=== PATIENT | male | born 1995 ===

== ENCOUNTER 2019-07-08 07:58 | Emergency (ER) | payer SELFPAY ==
[2019-07-08 08:02] VITALS: BP 121/88; PULSE 92; RESP 16; TEMP 36.7; O2SAT 100
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
[2019-07-08 08:52] LABS: Abs Immature Grans 0.02 k/cumm (0.0-0.09); Absolute Basophil Count 0.02 k/cumm (0.0-0.2); Absolute Eosinophil Count 0.06 k/cumm (0.0-0.7); Absolute Lymphocyte Count 1.82 k/cumm (1.2-3.4); Absolute Monocyte Count 0.75 k/cumm (0.11-0.7); Absolute Neutrophil Count 6.59 k/cumm (1.2-6.7); Basophils % 0.2; Eosinophils % 0.6; HCT 46.3 % (40.0-50.0); HGB 16.6 g/dL (13.5-17.5); Immature Grans % 0.2; Lymphocytes % 19.7; Mean Corp. HGB Concentration 35.9 g/dL (32.0-36.0); Mean Corpuscular Hemoglobin 32.2 pg (27.0-33.0); Mean Corpuscular Volume 89.9 fL (80-95); Mean Platelet Volume 8.7 fL (8.0-11.0); Monocytes % 8.1; Neutrophils % 71.2; Platelet Count 293 x1000/uL (130-400); RBC 5.15 m/cumm (4.50-6.00); White Blood Cell Count 9.26 k/cumm (4.4-10.8)
[2019-07-08 09:10] LABS: Salicylate < 2.8 mg/dL (2.8-20.0)
--- NOTE | 2019-07-08 09:10 | NUR.NOTE ---
Nursing Note:Pt's grandmother called at 0910 to inquire about pt. Grandmother states she would come case picker pt if needed. She is aware (with pt's permission) that the pt is being evaluated and is not yet ready for pickup. Grandmother (Za Nathan) left cell phone and house number as follows: Home: Provider made aware.
[2019-07-08 09:13] LABS: Acetaminophen < 2 ug/mL (10-30)
[2019-07-08 09:15] LABS: ALT 34 U/L (16-63); AST 40 U/L (15-37); Alkaline Phosphatase 111 U/L (46-116); Anion Gap 9.4 mmol/L (3-11); BUN 4 mg/dL (7-18); Bilirubin, Total 0.3 mg/dL (0.2-1.0); CO2 29.6 mmol/L (21.0-32.0); Calcium 8.5 mg/dL (8.5-10.1); Chloride 104 mmol/L (98-107); ETHANOL BLOOD 152.7 mg/dL (<3); Glucose 95 mg/dL (70-100); Potassium 3.9 mmol/L (3.5-5.1); Sodium 143 mmol/L (136-145); TSH 1.06 uIU/mL (0.36-3.74); Total Protein 7.7 g/dL (6.4-8.2)
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
--- NOTE | 2019-07-08 11:07 | NUR.NOTE ---
1100 pt sleeping. woken up to speak to mental health. mary martines called-pt left his room for exit. angry- asking how long he has been here and what have we been doing to help him. BUSINESS DEVELOPMENT SPECIALIST able to talk him into going back to his room to speak to mental health.Nursing Note:
== END 2019-07-08 11:50 | disposition home or self-care (01) ==
PROVIDERS: Emergency Provider Nurse Practitioner Family; PCP Family Medicine
DX: S02.2XXA Fracture of nasal bones, initial encounter for closed fracture (principal); F10.120 Alcohol abuse with intoxication, uncomplicated; R45.851 Suicidal ideations; Y04.0XXA Assault by unarmed brawl or fight, initial encounter
CPT/HCPCS: 36415; 80053; 99285; 70450; 70486; 72125; 80320; 80329; 84443; 85025; 99284

== ENCOUNTER 2019-08-27 15:48 | Emergency (ER) | payer SELFPAY ==
[2019-08-27 15:57] VITALS: BP 120/78; PULSE 65; RESP 16; TEMP 36.7; O2SAT 96
--- NOTE | 2019-08-27 16:11 | W.ED.GENAD ---
Discharge Plan Disposition Patient Disposition: HOME Condition: Stable Discharge Details Chief Complaint: DentalOral Clinical Impression: Dental caries Primary Care Provider: Manuel Dominguez ED Provider: Keegan Narvaez Home Meds and New Rx's Prescriptions: New ibuprofen 800 mg tablet 800 mg PO TID PRN (Reason: pain) Qty: 30 RF: 0 amoxicillin 500 mg capsule 500 mg PO BID Qty: 14 RF: 0 Discharge Instructions Instructions: Dental Caries (ED) Additional Instructions: follow up with your dentist as scheduled tomorrow take the ibuprofen and also 1000mg tylenol every 6 hours for pain as needd Medical Decision Making 24 yo male who denies chronic medical problems comes in with several days of left upper and lower molar pain. State he is scheduled for dentist appt tomorrow but came here due to the pain. He has no swelling of the gums, has numerous dental caries on exam, no submandibular swelling. No evidence of ludwigs or drainable abscess onmy exam. Will start him on abx and advised to keep appt with dentsit tomorrow and return precautions also given Differential Diagnosis Differential Diagnosis: caries, abscess, pulpitis HPI General Mode of arrival: ambulatory. Date/Time Provider Initiated Documentation: 08/27/19 16:08. Limitations to Documentation: no limitations. Information obtained by: patient. History of Present Illness 24 year old M presents to the emergency department with the chief complaint of dental pain, described as moderate and severe, and is localized to the mouth. Patient started experiencing this day(s) (2) and it has been constant. No relieving factors improve symptom(s), No exacerbating factors reported . Patient notes no other symptoms.. Related Data Home Medications Medication Instructions Recorded Confirmed amoxicillin 500 mg PO BID #14 cap 08/27/19 ibuprofen 800 mg PO TID PRN #30 tab 08/27/19 Previous Rx's Medication Instructions Recorded amoxicillin 500 mg PO BID #14 cap 08/27/19 ibuprofen 800 mg PO TID PRN #30 tab 08/27/19 Allergies Allergy/AdvReac Type Severity Reaction Status Date / Time No Known Allergies Allergy Unverified 08/27/19 16:02 General Stated Complaint: DentalOral REECE: 4 Review of Systems Review of Systems ROS Unobtainable: All systems reviewed & are unremarkable except as noted in HPI and below Constitutional Constitutional: Denies chills, Denies fever(s) and Denies weakness ENT Ears, Nose, Mouth, and Throat: Denies change in voice Cardiovascular Cardiovascular: Denies chest pain and Denies dyspnea Respiratory Respiratory: Denies cough and Denies dyspnea Gastrointestinal Gastrointestinal: Denies abdominal pain, Denies nausea and Denies vomiting Musculoskeletal Musculoskeletal: Denies joint swelling Neurologic Neurologic: Denies weakness COUNTS INCLUDE 234 BEDS AT THE [facility] Social History Smoking/Tobacco Use Status: Current every day Alcohol Intake: current Alcohol Intake frequency: 0-2 drinks per day Drug use: Occasionally Substance use type: marijuana Do you feel safe in your relationship?: No Additional Social history: above only per pt hx on file. Pt does not engage in these questions. Exam Const General: no acute distress Orientation: alert HENMT Head: normal to inspection Ears: external ears normal General nose exam: external nose normal Mouth: moist mucous membranes Eyes General: appearance normal, both eyes and all related structures Neck Neck: normal visual inspection Resp Effort & Inspection: normal respiratory effort and able to speak in complete sentences Cardio Rate: regular rate Skin General skin exam: no rashes or lesions noted Neuro General: alert and oriented x3 Extrem General: normal to inspection Psych Mental Status: mental status grossly normal Course Vital Signs Vital signs: Vital Signs Temperature 36.7 C 08/27/19 15:57 Pulse 65 08/27/19 15:57 Respiratory Rate 16 08/27/19 15:57 Blood Pressure 120/78 08/27/19 15:57 Pulse Oximetry 96 08/27/19 15:57 Temperature 36.7 C 08/27/19 15:57 Temperature Source Temporal Artery Scan 08/27/19 15:57 Pulse 65 08/27/19 15:57 Respiratory Rate 16 08/27/19 15:57 Respiratory Effort Non-Labored 08/27/19 16:00 Blood Pressure 120/78 08/27/19 15:57 Blood Pressure Position Sitting 08/27/19 15:57 Pulse Oximetry 96 08/27/19 15:57 Oxygen Delivery Method Room Air 08/27/19 15:57 Oxygen Flow Rate 0 08/27/19 15:57 Pain Level 10 08/27/19 16:00
[2019-08-27 16:25] VITALS: BP 120/78; PULSE 65; RESP 16; TEMP 36.7; O2SAT 96
== END 2019-08-27 16:26 | disposition home or self-care (01) ==
PROVIDERS: Emergency Provider Emergency Medicine; PCP Family Medicine
DX: K02.9 Dental caries, unspecified (principal)
CPT/HCPCS: 99283

== ENCOUNTER 2019-11-12 12:41 | Emergency (ER) | payer SELFPAY ==
[2019-11-12 12:48] VITALS: BP 128/72; PULSE 68; RESP 16; TEMP 36.7; O2SAT 100
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
== END 2019-11-12 13:40 | disposition home or self-care (01) ==
LOC: ER 13:40
PROVIDERS: Emergency Provider Emergency Medicine
DX: S43.52XA Sprain of left acromioclavicular joint, initial encounter (principal); X58.XXXA Exposure to other specified factors, initial encounter
CPT/HCPCS: 99283; 73030; L3650

== ENCOUNTER 2025-09-12 12:36 | Outpatient (REF) | payer SELFPAY ==
[2025-09-12 16:01] LABS: HCT 46.5 % (40.0-50.0); HGB 16.3 g/dL (13.5-17.5); MCH 31.7 pg (27.0-33.0); MCHC 35.1 % (32.0-36.0); MCV 90 fL (80-95); MPV 9.1 fL (8.0-11.0); Platelet Count 322 10^3/uL (130-400); RBC 5.15 10^6/uL (4.36-5.78); RDW 11.9 % (11.8-14.1); RDW-SD 39.4 fL; WBC 6.70 10^3/uL (4.4-10.8)
[2025-09-12 18:03] LABS: ALT 62 U/L (16-63); AST 42 U/L (15-37); Albumin 4.2 g/dL (3.4-5.0); Alkaline Phosphatase 121 U/L (46-116); Anion Gap 11.9 mmol/L (3-11); BUN 10 mg/dL (7-18); Bilirubin, Total 0.4 mg/dL (0.2-1.0); CO2 28.1 mmol/L (21.0-32.0); Calcium 9.2 mg/dL (8.5-10.1); Chloride 102 mmol/L (98-107); Glucose 87 mg/dL (74-106); Potassium 4.1 mmol/L (3.5-5.1); Sodium 142 mmol/L (136-145); TSH (W/Ref FT4) 1.14 uIU/mL (0.36-3.74); Total Protein 7.6 g/dL (6.4-8.2); Vitamin D 25 Total 26 ng/mL (30-100)
== END 2025-09-12 12:37 | disposition home or self-care (01) ==
LOC: NCHCN 12:36
DX: F10.90 Alcohol use, unspecified, uncomplicated (principal); Z13.29 Encounter for screening for other suspected endocrine disorder; R53.83 Other fatigue
CPT/HCPCS: 80053; 82306; 85027; 84443